=== PATIENT | female | born 2000 | race Caucasian/White ===

== ENCOUNTER 2018-11-11 20:13 | Observation (INO) | payer OTHER ==
--- NOTE | 2018-11-11 21:07 | ED ---
Abdominal Pain HPI - General Chief Complaint: Abdominal Pain Stated Complaint: Transfer from [facility] Time Seen by Provider: 11/11/18 20:53 Source: patient Mode of arrival: ambulatory Limitations: no limitations - History of Present Illness Initial Comments: This patient is 18-year-old woman who states she has previous history of kidney stones, who presents with concern that she may have an infected stone. Patient reports she had been seen at [facility] this morning, told she had a stone with associated urinary tract infection, and was told that she should be transferred to another facility with urology coverage. The patient states that she had signed out AGAINST MEDICAL ADVICE to take care of some details and then come to the hospital on her own. The patient describes right flank pain that is been going on for approximately 24 hours. She also has more frequent urination. The patient has some associated nausea. She is describing the pain as sharp, colicky, [id number]. She has not found worsening or relieving factors. The patient has not had fever or chills, palpitations, lightheadedness or syn cope, chest pain or dyspnea. MD Complaint: flank pain Onset/Timin -: hour(s) Location: R flank Radiation: none Migration to: no migration Severity: severe Quality: sharp Consistency: constant Improves With: nothing Worsens With: nothing Associated Symptoms: nausea - Related Data Home Medications Medication Instructions Recorded Confirmed No Known Home Medications 11/11/18 11/11/18 Allergies Allergy/AdvReac Type Severity Reaction Status Date / Time No Known Allergies Allergy Verified 11/11/18 21:14 Review of Systems ROS Statement: Those systems with pertinent positive or pertinent negative responses have been documented in the HPI. ROS Other: All systems not noted in ROS Statement are negative. Constitutional: Denies: fever, chills, weakness Respiratory: Denies: cough, dyspnea Cardiovascular: Denies: chest pain, palpitations, edema Gastrointestinal: Reports: as per HPI, abdominal pain, nausea. Denies: vomiting, diarrhea, constipation, melena, hematochezia Genitourinary: Reports: frequency. Denies: dysuria Musculoskeletal: Denies: back pain Skin: Denies: rash Neurological: Denies: headache, weakness, numbness Past Medical History Additional Past Medical History / Comment(s): kidney stones, ovarian cysts History of Any Multi-Drug Resistant Organisms: None Reported Past Surgical History: No Surgical Hx Reported Past Psychological History: No Psychological Hx Reported Smoking Status: Current every day smoker Past Alcohol Use History: Rare Past Drug Use History: Marijuana General Exam Limitations: no limitations General appearance: alert, in no apparent distress Head exam: Present: atraumatic, normocephalic Eye exam: Present: normal appearance. Absent: scleral icterus, conjunctival injection Respiratory exam: Present: normal lung sounds bilaterally. Absent: respiratory distress, wheezes, rales, rhonchi, stridor Cardiovascular Exam: Present: regular rate, normal rhythm, normal heart sounds. Absent: systolic murmur, diastolic murmur, rubs, gallop GI/Abdominal exam: Present: soft. Absent: distended, tenderness, guarding, rebound, rigid, mass, pulsatile mass, hernia Extremities exam: Present: normal inspection, normal capillary refill. Absent: pedal edema, calf tenderness Back exam: Present: normal inspection, CVA tenderness (R). Absent: CVA tenderness (L), vertebral tenderness Neurological exam: Present: alert, normal gait Skin exam: Present: warm, dry, intact, normal color. Absent: rash Course Vital Signs 11/11/18 11/11/18 20:45 22:10 Temperature 98.5 F Pulse Rate 55 L 69 Respiratory 20 16 Rate Blood Pressure 117/63 103/60 O2 Sat by Pulse 100 98 Oximetry Medical Decision Making - Medical Decision Making Review of the patient's transfer paperwork reveals no fever, tachcardia, or hypotension. The patient's urine showed red cells too numerous to count, white cells 5-10. Leukocytosis at 13.2K. patient's CT showed proximal stone, 6 mm, with hydronephrosis. - Lab Data Result diagrams: 11/11/18 21:35 11/11/18 21:35 Lab Results 11/11/18 11/11/18 11/11/18 Range/Units 21:35 21:35 21:35 WBC 11.0 (4.0-11.0) k/uL RBC 4.33 (3.80-5.40) m/uL Hgb 12.9 (11.4-16.0) gm/dL Hct 38.6 (34.0-46.0) % MCV 89.3 (80.0-100.0) fL MCH 29.8 (25.0-35.0) pg MCHC 33.4 (31.0-37.0) g/dL RDW 13.6 (11.5-15.5) % Plt Count 316 (150-450) k/uL Neutrophils % 50 % Lymphocytes % 42 % Monocytes % 4 % Eosinophils % 2 % Basophils % 1 % Neutrophils # 5.4 (1.3-7.7) k/uL Lymphocytes # 4.6 (1.0-4.8) k/uL Monocytes # 0.5 (0-1.0) k/uL Eosinophils # 0.2 (0-0.7) k/uL Basophils # 0.1 (0-0.2) k/uL Sodium 139 (137-145) mmol/L Potassium 3.5 (3.5-5.1) mmol/L Chloride 105 (98-107) mmol/L Carbon Dioxide 26 (22-30) mmol/L Anion Gap 8 mmol/L BUN 14 (7-17) mg/dL Creatinine 0.69 (0.52-1.04) mg/dL Est GFR (CKD-EPI)AfAm >90 (>60 ml/min/1.73 sqM) Est GFR (CKD-EPI)NonAf >90 (>60 ml/min/1.73 sqM) Glucose 78 (74-99) mg/dL Plasma Lactic Acid Alonso (0.7-2.0) mmol/L Calcium 9.4 (8.4-10.2) mg/dL Total Bilirubin 0.4 (0.2-1.3) mg/dL AST 32 (14-36) U/L ALT 26 (9-52) U/L Alkaline Phosphatase 78 (38-126) U/L Total Protein 6.9 (6.3-8.2) g/dL Albumin 4.3 (3.5-5.0) g/dL Amylase 76 (30-110) U/L Lipase 150 (23-300) U/L Urine Color Yellow Urine Appearance Clear (Clear) Urine pH 6.0 (5.0-8.0) Ur Specific [place] 1.021 (1.001-1.035) Urine Protein Negative (Negative) Urine Glucose (UA) Negative (Negative) Urine Ketones Negative (Negative) Urine Blood Small H (Negative) Urine Nitrite Negative (Negative) Urine Bilirubin Negative (Negative) Urine Urobilinogen <2.0 (<2.0) mg/dL Ur Leukocyte Esterase Small H (Negative) Urine RBC 25 H (0-5) /hpf Urine WBC 38 H (0-5) /hpf Urine WBC Clumps Rare H (None) /hpf Ur Squamous Epith Cells 2 (0-4) /hpf Urine Bacteria Rare H (None) /hpf Urine Mucus Rare H (None) /hpf 11/11/18 Range/Units 21:35 WBC (4.0-11.0) k/uL RBC (3.80-5.40) m/uL Hgb (11.4-16.0) gm/dL Hct (34.0-46.0) % MCV (80.0-100.0) fL MCH (25.0-35.0) pg MCHC (31.0-37.0) g/dL RDW (11.5-15.5) % Plt Count (150-450) k/uL Neutrophils % % Lymphocytes % % Monocytes % % Eosinophils % % Basophils % % Neutrophils # (1.3-7.7) k/uL Lymphocytes # (1.0-4.8) k/uL Monocytes # (0-1.0) k/uL Eosinophils # (0-0.7) k/uL Basophils # (0-0.2) k/uL Sodium (137-145) mmol/L Potassium (3.5-5.1) mmol/L Chloride (98-107) mmol/L Carbon Dioxide (22-30) mmol/L Anion Gap mmol/L BUN (7-17) mg/dL Creatinine (0.52-1.04) mg/dL Est GFR (CKD-EPI)AfAm (>60 ml/min/1.73 sqM) Est GFR (CKD-EPI)NonAf (>60 ml/min/1.73 sqM) Glucose (74-99) mg/dL Plasma Lactic Acid Alonso 0.8 (0.7-2.0) mmol/L Calcium (8.4-10.2) mg/dL Total Bilirubin (0.2-1.3) mg/dL AST (14-36) U/L ALT (9-52) U/L Alkaline Phosphatase (38-126) U/L Total Protein (6.3-8.2) g/dL Albumin (3.5-5.0) g/dL Amylase (30-110) U/L Lipase (23-300) U/L Urine Color Urine Appearance (Clear) Urine pH (5.0-8.0) Ur Specific [place] (1.001-1.035) Urine Protein (Negative) Urine Glucose (UA) (Negative) Urine Ketones (Negative) Urine Blood (Negative) Urine Nitrite (Negative) Urine Bilirubin (Negative) Urine Urobilinogen (<2.0) mg/dL Ur Leukocyte Esterase (Negative) Urine RBC (0-5) /hpf Urine WBC (0-5) /hpf Urine WBC Clumps (None) /hpf Ur Squamous Epith Cells (0-4) /hpf Urine Bacteria (None) /hpf Urine Mucus (None) /hpf Disposition Clinical Impression: Kidney stone, Urinary tract infection Disposition: ADMITTED IP TO THIS [facility] Condition: Good Is patient prescribed a controlled substance at d/c from ED?: No Referrals: None,Stated [Primary Care Provider] - 1-2 days
--- NOTE | 2018-11-11 21:27 | XR ---
EXAMINATION TYPE: XR KUB 2 views DATE OF EXAM: 11/11/2018 COMPARISON: None HISTORY: Abdominal pain on the right, hematuria TECHNIQUE: 2 upright views FINDINGS: Visualized lung bases and pleural spaces are negative. No pneumoperitoneum or pneumatosis; the bowel gas pattern is unremarkable. No acute skeletal or soft tissue findings. There is a calcification superimposed over the L4 right transverse process, which appears to be super imposed over the expected position of the right UPJ. IMPRESSION: 1. No acute radiographic process. 2. 6 x 3 mm calcification superimposed over the expected position of the right UPJ.
[2018-11-11 22:13] LABS: Appearance,Urine Clear (Clear); Bacteria,Urine Rare /hpf; Bilirubin,Urine Negative (Negative); Blood,Urine Small (Negative); Color,Urine Yellow; Glucose,Urine (UA) Negative (Negative); Ketones,Urine Negative (Negative); Leukocyte Esterase,Urine Small (Negative); Mucus,Urine Rare /hpf; Nitrite,Urine Negative (Negative); Protein,Urine Negative (Negative); RBC,Urine 25 /hpf (0-5); Specific Gravity,Urine 1.021 (1.001-1.035); Squamous Epithelial Cell,Urine 2 /hpf (0-4); Urobilinogen,Urine <2.0 mg/dL (<2.0); WBC,Urine 38 /hpf (0-5)
[2018-11-11] MEDS ORDERED: KETOROLAC 30 MG/ML 1 ML VIAL IVP STA (22:14)
[2018-11-11 22:19] LABS: ALT 26 U/L (9-52); AST 32 U/L (14-36); Albumin 4.3 g/dL (3.5-5.0); Alkaline Phosphatase 78 U/L (38-126); Amylase 76 U/L (30-110); Anion Gap 8 mmol/L; Basophils # (A) 0.1 k/uL (0-0.2); Basophils % (A) 1 %; Blood Urea Nitrogen 14 mg/dL (7-17); Calcium 9.4 mg/dL (8.4-10.2); Carbon Dioxide 26 mmol/L (22-30); Chloride 105 mmol/L (98-107); Eosinophils # (A) 0.2 k/uL (0-0.7); Eosinophils % (A) 2 %; Glucose 78 mg/dL (74-99); HCT 38.6 % (34.0-46.0); HGB 12.9 gm/dL (11.4-16.0); Lipase 150 U/L (23-300); Lymphocytes # (A) 4.6 k/uL (1.0-4.8); Lymphocytes % (A) 42 %; MCH 29.8 pg (25.0-35.0); MCHC 33.4 g/dL (31.0-37.0); MCV 89.3 fL (80.0-100.0); Mean Platelet Volume 7.1; Monocytes # (A) 0.5 k/uL (0-1.0); Monocytes % (A) 4 %; Neutrophils # (A) 5.4 k/uL (1.3-7.7); Neutrophils % (A) 50 %; Platelet Count 316 k/uL (150-450); Potassium 3.5 mmol/L (3.5-5.1); RBC 4.33 m/uL (3.80-5.40); RDW 13.6 % (11.5-15.5); Sodium 139 mmol/L (137-145); Total Bilirubin 0.4 mg/dL (0.2-1.3); Total Protein 6.9 g/dL (6.3-8.2)
[2018-11-11] MEDS ORDERED: LEVOFLOXACIN 750MG-D5W PMX 750 MG in DEXTROSE/WATER 1 150ML.BAG IVPB STA (22:30)
[2018-11-11] MEDS ORDERED: ACETAMINOPHEN TAB 325 MG TAB PO PRN (22:35)
[2018-11-11] MEDS ORDERED: MORPHINE SULFATE 4 MG/ML SYRINGE IV PRN (22:35)
[2018-11-11] MEDS ORDERED: NALOXONE 0.4 MG/ML 1 ML VIAL IV PRN (22:35)
[2018-11-11 23:39] VITALS: RESP 18
[2018-11-11 23:50] VITALS: BMI 20.9
[2018-11-12] MEDS: SODIUM CHLORIDE 0.9% 1,000 ML IV SCH ×2 (00:41→09:08)
[2018-11-12 07:35] LABS: Anion Gap 4 mmol/L; Blood Urea Nitrogen 12 mg/dL (7-17); Calcium 8.5 mg/dL (8.4-10.2); Carbon Dioxide 24 mmol/L (22-30); Chloride 110 mmol/L (98-107); Glucose 83 mg/dL (74-99); Potassium 3.8 mmol/L (3.5-5.1); Sodium 138 mmol/L (137-145)
[2018-11-12] MEDS ORDERED: HYDROcodone/APAP 5-325MG 1 EACH TAB PO PRN (08:30)
--- NOTE | 2018-11-12 08:30 | P.GSHP ---
History of Present Illness H&P Date: 11/12/18 The patient is a 18-year-old female from [place] she was transferred down yesterday night to our emergency room because of flank pain due to a 6 mm ureteral stone on the right as well as possible urinary infection. The patient for the last several days as had the for right flank pain and right upper quadrant pain with nausea. Yesterday and [facility] she had a computed tomography scan identifying a 6 mm proximal ureteral stone with possible urinary infection. Her white count was mildly elevated she had no fever. The patient may have had a stone a few years ago. She has had intermittent right upper quadrant pain over the last couple years. It is only been severe just the last couple days. Her mother has had stones up. She has not had a lot of infection. She has had no fever and chills. She is feeling much better this morning. - Constitutional Constitutional: Denies chills, Denies fever - EENT Eyes: denies blurred vision, denies pain Ears, nose, mouth and throat: Denies headache, Denies sore throat - Cardiovascular Cardiovascular: Denies chest pain, Denies shortness of breath - Respiratory Respiratory: Denies cough, Denies 7 - Gastrointestinal Gastrointestinal: Denies abdominal pain, Denies diarrhea, Denies nausea, Denies vomiting - Genitourinary (Female) Genitourinary: Denies dysuria, Denies hematuria - Genitourinary (Male) Genitourinary: Denies dysuria, Denies hematuria - Musculoskeletal Musculoskeletal: Denies myalgias - Integumentary Integumentary: Denies pruritus, Denies rash - Neurological Neurological: Denies numbness, Denies weakness - Psychiatric Psychiatric: Denies anxiety, Denies depression - Endocrine Endocrine: Denies fatigue, Denies weight change Past Medical History Additional Past Medical History / Comment(s): Kidney stones, ovarian cysts History of Any Multi-Drug Resistant Organisms: None Reported Past Surgical History: No Surgical Hx Reported Past Anesthesia/Blood Transfusion Reactions: No Reported Reaction Past Psychological History: Depression Smoking Status: Current every day smoker Past Alcohol Use History: Rare Additional Past Alcohol Use History / Comment(s): A quarter of a pack of cigarettes daily. Rare alcohol use. Rare marijuana use. States she lives with no one but feels safe. Past Drug Use History: Marijuana - Past Family History Mother Family Medical History: Cancer Additional Family Medical History / Comment(s): Aunts/uncles/grandmothers/grandfathers. Brain ca, thyroid ca. Medications and Allergies Home Medications Medication Instructions Recorded Confirmed Type No Known Home Medications 11/11/18 11/11/18 History Allergies Allergy/AdvReac Type Severity Reaction Status Date / Time No Known Allergies Allergy Verified 11/11/18 21:14 Surgical - Exam Vital Signs Temp Pulse Resp BP Pulse Ox 98.5 F 55 L 20 117/63 100 11/11/18 20:45 11/11/18 20:45 11/11/18 20:45 11/11/18 20:45 11/11/18 20:45 - General well developed, well nourished, no distress - Eyes PERRL - ENT no hearing loss - Neck no masses - Respiratory normal expansion, normal respiratory effort - Cardiovascular Rhythm: regular - Abdomen Abdomen: soft, non tender - Neurologic normal coordination, normal sensation - Musculoskeletal normal posture - Psychiatric oriented to time, oriented to person, speech is normal, memory intact Results - Labs 11/11/18 21:35 11/12/18 06:31 Abnormal Lab Results - Last 24 Hours (Table) 11/11/18 11/12/18 Range/Units 21:35 06:31 Chloride 110 H (98-107) mmol/L Urine Blood Small H (Negative) Ur Leukocyte Esterase Small H (Negative) Urine RBC 25 H (0-5) /hpf Urine WBC 38 H (0-5) /hpf Urine WBC Clumps Rare H (None) /hpf Urine Bacteria Rare H (None) /hpf Urine Mucus Rare H (None) /hpf Microbiology - Last 24 Hours (Table) 11/11/18 21:35 Urine Culture - Preliminary Urine,Clean Catch Diabetes panel 11/11/18 11/12/18 Range/Units 21:35 06:31 Sodium 139 138 (137-145) mmol/L Potassium 3.5 3.8 (3.5-5.1) mmol/L Chloride 105 110 H (98-107) mmol/L Carbon Dioxide 26 24 (22-30) mmol/L BUN 14 12 (7-17) mg/dL Creatinine 0.69 0.62 (0.52-1.04) mg/dL Glucose 78 83 (74-99) mg/dL Calcium 9.4 8.5 (8.4-10.2) mg/dL AST 32 (14-36) U/L ALT 26 (9-52) U/L Alkaline Phosphatase 78 (38-126) U/L Total Protein 6.9 (6.3-8.2) g/dL Albumin 4.3 (3.5-5.0) g/dL Calcium panel 11/11/18 11/12/18 Range/Units 21:35 06:31 Calcium 9.4 8.5 (8.4-10.2) mg/dL Albumin 4.3 (3.5-5.0) g/dL Pituitary panel 11/11/18 11/12/18 Range/Units 21:35 06:31 Sodium 139 138 (137-145) mmol/L Potassium 3.5 3.8 (3.5-5.1) mmol/L Chloride 105 110 H (98-107) mmol/L Carbon Dioxide 26 24 (22-30) mmol/L BUN 14 12 (7-17) mg/dL Creatinine 0.69 0.62 (0.52-1.04) mg/dL Glucose 78 83 (74-99) mg/dL Calcium 9.4 8.5 (8.4-10.2) mg/dL Adrenal panel 11/11/18 11/12/18 Range/Units 21:35 06:31 Sodium 139 138 (137-145) mmol/L Potassium 3.5 3.8 (3.5-5.1) mmol/L Chloride 105 110 H (98-107) mmol/L Carbon Dioxide 26 24 (22-30) mmol/L BUN 14 12 (7-17) mg/dL Creatinine 0.69 0.62 (0.52-1.04) mg/dL Glucose 78 83 (74-99) mg/dL Calcium 9.4 8.5 (8.4-10.2) mg/dL Total Bilirubin 0.4 (0.2-1.3) mg/dL AST 32 (14-36) U/L ALT 26 (9-52) U/L Alkaline Phosphatase 78 (38-126) U/L Total Protein 6.9 (6.3-8.2) g/dL Albumin 4.3 (3.5-5.0) g/dL - Imaging CT scan - abdomen: report reviewed CT scan - pelvis: report reviewed Assessment and Plan Assessment: Impression: Right ureteral stone with colic. Possible urine infection most likely just urinary inflammation. Recommendations: I the lengthy discussion about the diagnosis of ureteral calculus as well as the multiple treatment options available. Since she is feeling relatively well I would encourage spontaneous passage of possible with the thought that if she doesn't pass in the next 10 days or so she could undergo shockwave lithotripsy on the right side. We'll see how she does over the next several hours. If she agrees with comfortable she can be discharged home and follow-up in the office next week. I would consider shockwave lithotripsy in 10 days if she does not pass a stone or has intermittent discomfort in the meanwhile. If her pain persists while she is here at the hospital she may need a ureteroscopic manipulation.
[2018-11-12 08:45] LABS: Basophils # (A) 0.1 k/uL (0-0.2); Basophils % (A) 1 %; Eosinophils # (A) 0.3 k/uL (0-0.7); Eosinophils % (A) 4 %; HCT 35.5 % (34.0-46.0); HGB 12.3 gm/dL (11.4-16.0); Lymphocytes # (A) 4.5 k/uL (1.0-4.8); Lymphocytes % (A) 60 %; MCHC 34.6 g/dL (31.0-37.0); MCV 89.5 fL (80.0-100.0); Mean Platelet Volume 7.6; Monocytes # (A) 0.4 k/uL (0-1.0); Monocytes % (A) 5 %; Neutrophils # (A) 2.2 k/uL (1.3-7.7); Neutrophils % (A) 29 %; Platelet Count 279 k/uL (150-450); RBC 3.97 m/uL (3.80-5.40); RDW 13.7 % (11.5-15.5); WBC 7.5 k/uL (4.0-11.0)
[2018-11-12] MEDS ORDERED: FAMOTIDINE 20 MG TAB PO SCH (09:00)
[2018-11-12 12:09] VITALS: BP 101/63; PULSE 52; TEMP 97.7
== END 2018-11-12 13:29 | disposition home or self-care (01) ==
LOC: EC 20:13 → 3NMEDONC 22:38
PROVIDERS: ADMIT Urology; ATTEND Urology
DX: N13.2 Hydronephrosis with renal and ureteral calculous obstruction (principal); F32.9 Major depressive disorder, single episode, unspecified; F17.210 Nicotine dependence, cigarettes, uncomplicated; D72.829 Elevated white blood cell count, unspecified; Z87.442 Personal history of urinary calculi; Z87.42 Personal history of other diseases of the female genital tract; Z80.8 Family history of malignant neoplasm of other organs or systems; Z84.1 Family history of disorders of kidney and ureter
CPT/HCPCS: 96361; 96375 ×2; 96365; 99285; 36415; 80053; 80048; 82150; 83605; 83690; 85025 ×2; 81001; 87040; 87086; 74018; G0378 ×2; J2270; J1885; J1956

== ENCOUNTER 2019-10-02 14:56 | Inpatient (IN) | payer OTHER ==
--- NOTE | 2019-10-02 15:24 | ED ---
Abdominal Pain HPI - General Chief Complaint: Abdominal Pain Stated Complaint: sent [facility]/kidney stone Time Seen by Provider: 10/02/19 15:03 Source: patient Mode of arrival: ambulatory Limitations: no limitations - History of Present Illness Initial Comments: 19-year-old female presenting for infected urolithiasis, obstructing x 20 hours. Patient states she has had right flank pain 20 hours. Patient states that she is history of kidney stone. Patient states the pain is very severe sharp causing nausea. Patient states she presented at 9 AM to have repeat hospital. She states they are she was told that she had an 8 mm stone. She states her pain was uncontrolled with morphine hourly and she was sent to [facility] higher level of care given no urology for consultation at the hospital. Patient decided she would like to be transported via personal vehicle and arrived to the emergency department here [facility] around 3 PM. Patient brought her laboratory studies which did reveal a white count of 28, positive nitrate urine and an CT with contrast revealing a 8 mm proximal ureter stone with moderate to severe hydronephrosis right sided as well as significant urinary nephrotic edema concerning for caliceal rupture. Patient upon arrival is complaing of left flank pain, HR elevated, she is not hypotensive but BP lower aspect of normal, afebrile. Does not appear in distress. Has seen Dr. Corral in the past. - Related Data Previous Rx's Medication Instructions Recorded Ciprofloxacin HCl [Cipro] 500 mg PO Q12H 3 Days #10 tab 11/12/18 HYDROcodone/APAP 5-325MG [[place] 1 tab PO Q4HR PRN #10 tab 11/12/18 5-325] Allergies Allergy/AdvReac Type Severity Reaction Status Date / Time No Known Allergies Allergy Verified 10/02/19 15:02 Review of Systems ROS Statement: Those systems with pertinent positive or pertinent negative responses have been documented in the HPI. ROS Other: All systems not noted in ROS Statement are negative. Past Medical History Additional Past Medical History / Comment(s): Kidney stones, ovarian cysts History of Any Multi-Drug Resistant Organisms: None Reported Past Surgical History: No Surgical Hx Reported Past Anesthesia/Blood Transfusion Reactions: No Reported Reaction Past Psychological History: Depression Smoking Status: Current every day smoker Past Alcohol Use History: Rare Past Drug Use History: Marijuana - Past Family History Mother Family Medical History: Cancer Additional Family Medical History / Comment(s): Aunts/uncles /grandmothers/grandfathers. Brain ca, thyroid ca. General Exam - General Exam Comments Initial Comments: General: The patient is awake and alert, in no distress Eye: +3 mm pupils are equal, round and reactive to light, extra-ocular movements are intact. No nystagmus. There is normal conjunctiva bilaterally. No signs of icterus. Ears, nose, mouth and throat: There are moist mucous membranes and no oral lesions. Neck: The neck is supple, there is no tenderness or JVD. Cardiovascular: There is a regular rate and rhythm. No murmur, rub or gallop is appreciated. Respiratory: Lungs are clear to auscultation, respirations are non-labored, breath sounds are equal. No wheezes, stridor, rales, or rhonchi. Gastrointestinal: Soft, non-distended, non-tender abdomen without masses or organomegaly noted. There is no rebound or guarding present. Musculoskeletal: Normal ROM, no tenderness. Strength 5/5. Sensation intact. Radial pulses equal bilaterally 2+. Neurological: A&O x 3. CN II-XII intact grossly, There are no obvious motor or sensory deficits. Coordination appears grossly intact. Speech is normal. Skin: Skin is warm and dry and no rashes or lesions are noted. Psychiatric: Cooperative, appropriate mood & affect, normal judgment. Limitations: no limitations Course Vital Signs 10/02/19 10/02/19 14:59 16:56 Temperature 99.3 F 99 F Pulse Rate 117 H 101 H Respiratory 20 18 Rate Blood Pressure 101/59 100/69 O2 Sat by Pulse 98 98 Oximetry Medical Decision Making - Medical Decision Making 19-year-old female presenting for right flank pain x 20 hours. Found to have a septic obstructing right-sided ureteral stone psych facility transfer to our facility for urology consultation. Found to have leukocytosis, urine consistent with the diagnosis made at [facility]. Dr. Faulkner accepted admission he states he will take the patient to the operating room at 6:30PM. Patient is agreeable to surgery. In addition to the original 1gm given earlier today patient was given 1gm rocephin for a total of 2g today. Patient transferred to pediatric floor until surgeon takes patient to the OR. Dr. Valdez spoke with specialist as well as I. Dr. Valdez is agreeable to this care plan. - Lab Data Result diagrams: 10/02/19 15:13 10/02/19 15:13 Lab Results 10/02/19 10/02/19 10/02/19 Range/Units 15:13 15:13 15:13 WBC 25.7 H (3.8-10.6) k/uL RBC 4.48 (3.80-5.40) m/uL Hgb 13.3 (11.4-16.0) gm/dL Hct 39.6 (34.0-46.0) % MCV 88.5 (80.0-100.0) fL MCH 29.7 (25.0-35.0) pg MCHC 33.6 (31.0-37.0) g/dL RDW 12.9 (11.5-15.5) % Plt Count 295 (150-450) k/uL Neutrophils % 95 % Lymphocytes % 3 % Monocytes % 2 % Eosinophils % 0 % Basophils % 0 % Neutrophils # 24.4 H (1.3-7.7) k/uL Lymphocytes # 0.6 L (1.0-4.8) k/uL Monocytes # 0.6 (0-1.0) k/uL Eosinophils # 0.1 (0-0.7) k/uL Basophils # 0.0 (0-0.2) k/uL Sodium 131 L (137-145) mmol/L Potassium 4.1 (3.5-5.1) mmol/L Chloride 101 (98-107) mmol/L Carbon Dioxide 20 L (22-30) mmol/L Anion Gap 10 mmol/L BUN 17 (7-17) mg/dL Creatinine 1.17 H (0.52-1.04) mg/dL Est GFR (CKD-EPI)AfAm 77 (>60 ml/min/1.73 sqM) Est GFR (CKD-EPI)NonAf 67 (>60 ml/min/1.73 sqM) Glucose 93 (74-99) mg/dL Plasma Lactic Acid Alonso 1.3 (0.7-2.0) mmol/L Calcium 8.5 (8.4-10.2) mg/dL Total Bilirubin 0.9 (0.2-1.3) mg/dL AST 33 (14-36) U/L ALT 14 (4-34) U/L Alkaline Phosphatase 91 (38-126) U/L Total Protein 6.7 (6.3-8.2) g/dL Albumin 3.8 (3.5-5.0) g/dL Urine Color Urine Appearance (Clear) Urine pH (5.0-8.0) Ur Specific [place] (1.001-1.035) Urine Protein (Negative) Urine Glucose (UA) (Negative) Urine Ketones (Negative) Urine Blood (Negative) Urine Nitrite (Negative) Urine Bilirubin (Negative) Urine Urobilinogen (<2.0) mg/dL Ur Leukocyte Esterase (Negative) Urine RBC (0-5) /hpf Urine WBC (0-5) /hpf Ur Squamous Epith Cells (0-4) /hpf Urine Bacteria (None) /hpf Urine Mucus (None) /hpf Urine HCG, Qual (Not Detectd) 10/02/19 10/02/19 Range/Units 15:30 15:30 WBC (3.8-10.6) k/uL RBC (3.80-5.40) m/uL Hgb (11.4-16.0) gm/dL Hct (34.0-46.0) % MCV (80.0-100.0) fL MCH (25.0-35.0) pg MCHC (31.0-37.0) g/dL RDW (11.5-15.5) % Plt Count (150-450) k/uL Neutrophils % % Lymphocytes % % Monocytes % % Eosinophils % % Basophils % % Neutrophils # (1.3-7.7) k/uL Lymphocytes # (1.0-4.8) k/uL Monocytes # (0-1.0) k/uL Eosinophils # (0-0.7) k/uL Basophils # (0-0.2) k/uL Sodium (137-145) mmol/L Potassium (3.5-5.1) mmol/L Chloride (98-107) mmol/L Carbon Dioxide (22-30) mmol/L Anion Gap mmol/L BUN (7-17) mg/dL Creatinine (0.52-1.04) mg/dL Est GFR (CKD-EPI)AfAm (>60 ml/min/1.73 sqM) Est GFR (CKD-EPI)NonAf (>60 ml/min/1.73 sqM) Glucose (74-99) mg/dL Plasma Lactic Acid Alonso (0.7-2.0) mmol/L Calcium (8.4-10.2) mg/dL Total Bilirubin (0.2-1.3) mg/dL AST (14-36) U/L ALT (4-34) U/L Alkaline Phosphatase (38-126) U/L Total Protein (6.3-8.2) g/dL Albumin (3.5-5.0) g/dL Urine Color Yellow Urine Appearance Cloudy H (Clear) Urine pH 6.0 (5.0-8.0) Ur Specific [place] >1.050 H (1.001-1.035) Urine Protein Trace H (Negative) Urine Glucose (UA) Negative (Negative) Urine Ketones Trace H (Negative) Urine Blood Moderate H (Negative) Urine Nitrite Negative (Negative) Urine Bilirubin Negative (Negative) Urine Urobilinogen <2.0 (<2.0) mg/dL Ur Leukocyte Esterase Large H (Negative) Urine RBC 42 H (0-5) /hpf Urine WBC 153 H (0-5) /hpf Ur Squamous Epith Cells 13 H (0-4) /hpf Urine Bacteria Few H (None) /hpf Urine Mucus Rare H (None) /hpf Urine HCG, Qual Not Detected (Not Detectd) Disposition Clinical Impression: Hydronephrosis with urinary obstruction due to ureteral calculus, Urolithiasis, UTI (urinary tract infection) Narrative: Infected urolithiasis-right sided Disposition: ADMITTED IP TO THIS [facility] Condition: Serious Is patient prescribed a controlled substance at d/c from ED?: No Time of Disposition: 15:58 Decision to Admit Reason: Admit from EC Decision Date: 10/02/19 Decision Time: 15:58
[2019-10-02] MEDS ORDERED: MORPHINE SULFATE 4 MG/ML SYRINGE IVP STA (15:30)
[2019-10-02] MEDS ORDERED: ONDANSETRON 4 MG/2 ML VIAL IVP STA (15:30)
[2019-10-02] MEDS ORDERED: SODIUM CHLORIDE 0.9% 1,000 ML IV ONE (15:36)
[2019-10-02] MEDS: SODIUM CHLORIDE 0.9% 1,000 ML IV SCH ×2 (15:47→19:39)
[2019-10-02] MEDS ORDERED: ONDANSETRON 4 MG/2 ML VIAL IVP PRN (15:52)
[2019-10-02] MEDS ORDERED: NALOXONE 0.4 MG/ML 1 ML VIAL IV PRN (15:52)
[2019-10-02] MEDS ORDERED: HYDROmorphone 0.5 MG/0.5 ML SYRINGE IVP PRN (15:52)
[2019-10-02 16:14] LABS: Albumin 3.8 g/dL (3.5-5.0); Basophils % (A) 0 %; Calcium 8.5 mg/dL (8.4-10.2); Eosinophils # (A) 0.1 k/uL (0-0.7); Eosinophils % (A) 0 %; HCT 39.6 % (34.0-46.0); HGB 13.3 gm/dL (11.4-16.0); Lymphocytes # (A) 0.6 k/uL (1.0-4.8); Lymphocytes % (A) 3 %; MCH 29.7 pg (25.0-35.0); MCHC 33.6 g/dL (31.0-37.0); MCV 88.5 fL (80.0-100.0); Mean Platelet Volume 7.1; Monocytes # (A) 0.6 k/uL (0-1.0); Monocytes % (A) 2 %; Neutrophils # (A) 24.4 k/uL (1.3-7.7); Neutrophils % (A) 95 %; Platelet Count 295 k/uL (150-450); Potassium 4.1 mmol/L (3.5-5.1); RBC 4.48 m/uL (3.80-5.40); RDW 12.9 % (11.5-15.5); Total Bilirubin 0.9 mg/dL (0.2-1.3); Total Protein 6.7 g/dL (6.3-8.2); WBC 25.7 k/uL (3.8-10.6)
[2019-10-02 16:14] LABS: Appearance,Urine Cloudy (Clear); Bacteria,Urine Few /hpf; Bilirubin,Urine Negative (Negative); Blood,Urine Moderate (Negative); Color,Urine Yellow; Glucose,Urine (UA) Negative (Negative); Ketones,Urine Trace (Negative); Leukocyte Esterase,Urine Large (Negative); Mucus,Urine Rare /hpf; Nitrite,Urine Negative (Negative); Protein,Urine Trace (Negative); RBC,Urine 42 /hpf (0-5); Squamous Epithelial Cell,Urine 13 /hpf (0-4); Urobilinogen,Urine <2.0 mg/dL (<2.0); WBC,Urine 153 /hpf (0-5)
[2019-10-02 16:15] LABS: Specific Gravity,Urine >1.050 (1.001-1.035)
--- NOTE | 2019-10-02 16:36 | XR ---
EXAMINATION TYPE: XR KUB DATE OF EXAM: 10/02/2019 COMPARISON: 11/11/2018 HISTORY: Right-sided pain TECHNIQUE: 2 views upright FINDINGS: There is no sign of intestinal obstruction or pneumoperitoneum. Fecal pattern is normal. Th ere is contrast in the right kidney with hydronephrosis. Lung bases are clear. There are no pathologi c calcifications. There is contrast in the urinary bladder. IMPRESSION: Right-sided hydronephrosis with persistent right nephrogram and pyelogram consistent with acute obstruction. Appearance is not changed compared to outside CT scan of today. No calculus ident ified.
--- NOTE | 2019-10-02 17:56 | P.GSHP ---
History of Present Illness H&P Date: 10/02/19 This is a 19-year-old female with a history of kidney stones who for the last day has had right-sided flank pain nausea vomiting and severe of right sided flank pain. She went to the [facility] emergency room and then was transferred to [facility] after was identified that she had an 8 mm proximal ureteral stone and elevated white count of 28,000 low-grade fever. I was asked to see the patient. The patient has been seen by me in the past. She has an 8 mm proximal ureteral stone with hydronephrosis. Because of elevated white count a low-grade fever, tachycardic she will undergo an emergent placement of double-J catheter to relieve the obstruction and aid in the treatme nt of the infected urine and sepsis. - Constitutional Constitutional: Denies chills, Denies fever - EENT Eyes: denies blurred vision, denies pain Ears, nose, mouth and throat: Denies headache, Denies sore throat - Cardiovascular Cardiovascular: Denies chest pain, Denies shortness of breath - Respiratory Respiratory: Denies cough, Denies 7 - Gastrointestinal Gastrointestinal: Denies abdominal pain, Denies diarrhea, Denies nausea, Denies vomiting - Genitourinary (Female) Genitourinary: Denies dysuria, Denies hematuria - Genitourinary (Male) Genitourinary: Denies dysuria, Denies hematuria - Musculoskeletal Musculoskeletal: Denies myalgias - Integumentary Integumentary: Denies pruritus, Denies rash - Neurological Neurological: Denies numbness, Denies weakness - Psychiatric Psychiatric: Denies anxiety, Denies depression - Endocrine Endocrine: Denies fatigue, Denies weight change Past Medical History Additional Past Medical History / Comment(s): Kidney stones, ovarian cysts History of Any Multi-Drug Resistant Organisms: None Reported Past Surgical History: No Surgical Hx Reported Past Anesthesia/Blood Transfusion Reactions: No Reported Reaction Past Psychological History: Depression Smoking Status: Current every day smoker Past Alcohol Use History: Rare Past Drug Use History: Marijuana - Past Family History Mother Family Medical History: Cancer Additional Family Medical History / Comment(s): Au nts/uncles/grandmothers/grandfathers. Brain ca, thyroid ca. Medications and Allergies Home Medications Medication Instructions Recorded Confirmed Type No Known Home Medications 10/02/19 10/02/19 History Allergies Allergy/AdvReac Type Severity Reaction Status Date / Time No Known Allergies Allergy Verified 10/02/19 17:21 Surgical - Exam Vital Signs Temp Pulse Resp BP Pulse Ox 99.3 F 117 H 20 101/59 98 10/02/19 14:59 10/02/19 14:59 10/02/19 14:59 10/02/19 14:59 10/02/19 14:59 - General well developed, moderate distress - Eyes PERRL - ENT no hearing loss - Neck no masses - Respiratory normal expansion, normal respiratory effort - Cardiovascular Tachycardic - Abdomen Abdomen: soft, tender - Integumentary no rash, no growths - Neurologic normal coordination, normal sensation - Musculoskeletal normal gait, normal posture - Psychiatric oriented to time, oriented to person, oriented to place, speech is normal, memory intact Results - Labs 10/02/19 15:13 10/02/19 15:13 Abnormal Lab Results - Last 24 Hours (Table) 10/02/19 10/02/19 10/02/19 Range/Units 15:13 15:13 15:30 WBC 25.7 H (3.8-10.6) k/uL Neutrophils # 24.4 H (1.3-7.7) k/uL Lymphocytes # 0.6 L (1.0-4.8) k/uL Sodium 131 L (137-145) mmol/L Carbon Dioxide 20 L (22-30) mmol/L Creatinine 1.17 H (0.52-1.04) mg/dL Urine Appearance Cloudy H (Clear) Ur Specific [place] >1.050 H (1.001-1.035) Urine Protein Trace H (Negative) Urine Ketones Trace H (Negative) Urine Blood Moderate H (Negative) Ur Leukocyte Esterase Large H (Negative) Urine RBC 42 H (0-5) /hpf Urine WBC 153 H (0-5) /hpf Ur Squamous Epith Cells 13 H (0-4) /hpf Urine Bacteria Few H (None) /hpf Urine Mucus Rare H (None) /hpf Diabetes panel 10/02/19 Range/Units 15:13 Sodium 131 L (137-145) mmol/L Potassium 4.1 (3.5-5.1) mmol/L Chloride 101 (98-107) mmol/L Carbon Dioxide 20 L (22-30) mmol/L BUN 17 (7-17) mg/dL Creatinine 1.17 H (0.52-1.04) mg/dL Glucose 93 (74-99) mg/dL Calcium 8.5 (8.4-10.2) mg/dL AST 33 (14-36) U/L ALT 14 (4-34) U/L Alkaline Phosphatase 91 (38-126) U/L Total Protein 6.7 (6.3-8.2) g/dL Albumin 3.8 (3.5-5.0) g/dL Calcium panel 10/02/19 Range/Units 15:13 Calcium 8.5 (8.4-10.2) mg/dL Albumin 3.8 (3.5-5.0) g/dL Pituitary panel 10/02/19 Range/Units 15:13 Sodium 131 L (137-145) mmol/L Potassium 4.1 (3.5-5.1) mmol/L Chloride 101 (98-107) mmol/L Carbon Dioxide 20 L (22-30) mmol/L BUN 17 (7-17) mg/dL Creatinine 1.17 H (0.52-1.04) mg/dL Glucose 93 (74-99) mg/dL Calcium 8.5 (8.4-10.2) mg/dL Adrenal panel 10/02/19 Range/Units 15:13 Sodium 131 L (137-145) mmol/L Potassium 4.1 (3.5-5.1) mmol/L Chloride 101 (98-107) mmol/L Carbon Dioxide 20 L (22-30) mmol/L BUN 17 (7-17) mg/dL Creatinine 1.17 H (0.52-1.04) mg/dL Glucose 93 (74-99) mg/dL Calcium 8.5 (8.4-10.2) mg/dL Total Bilirubin 0.9 (0.2-1.3) mg/dL AST 33 (14-36) U/L ALT 14 (4-34) U/L Alkaline Phosphatase 91 (38-126) U/L Total Protein 6.7 (6.3-8.2) g/dL Albumin 3.8 (3.5-5.0) g/dL - Imaging Abdominal x-ray: report reviewed, image reviewed CT scan - abdomen: report reviewed, image reviewed CT scan - pelvis: report reviewed, image reviewed Assessment and Plan Assessment: Impression: Right ureteral calculus, pyonephrosis, urinary tract infection with sepsis. Recommendations: Admission, IV hydration, IV antibiotics and emergent placement of double-J catheter right. Right Ureteroscopy and stone removal will be done at a later date.
[2019-10-02] MEDS ORDERED: fentaNYL (PF) 50 MCG/ML 2 ML AMP ONE (18:09)
[2019-10-02] MEDS ORDERED: SUCCINYLCHOLINE CHLORIDE 100 MG/5 ML SYR IV ONE (18:09)
[2019-10-02] MEDS ORDERED: LIDOCAINE 1% INJ 10MG/ML (20 ML MDV) ONE (18:09)
[2019-10-02] MEDS ORDERED: PROPOFOL 10 MG/ML 20 ML VIAL IV ONE (18:09)
[2019-10-02] MEDS ORDERED: MIDAZOLAM 2 MG/2 ML VIAL ONE (18:09)
[2019-10-02] MEDS ORDERED: KETOROLAC 30 MG/ML 1 ML VIAL ONE (18:09)
[2019-10-02] MEDS ORDERED: ONDANSETRON 4 MG/2 ML VIAL ONE (18:09)
[2019-10-02] MEDS ORDERED: DEXAMETHASONE SOD PHOS (MDV) 100 MG/10 ML VIAL ONE (18:09)
[2019-10-02] MEDS ORDERED: IV FLUID CONTINUATION 1,000 ML IV ONE ×2 (18:09)
--- NOTE | 2019-10-02 18:42 | P.OP ---
Date of Procedure: 10/02/19 Preoperative Diagnosis: Right ureteral calculus, right ureteral obstruction with pyelonephrosis, urinary tract infection with sepsis Postoperative Diagnosis: Same Procedure(s) Performed: Cystoscopy, placement of 6 x 24 double-J catheter right Anesthesia: CELESTINO Surgeon: Marv Corral Estimated Blood Loss (ml): 0 Pathology: none sent Condition: stable Disposition: PACU Indications for Procedure: The patient is 19. She has a history kidney stones. She has an 8 mm proximal ureteral stone that is obstructed the right ureter. The urine in the collecting system proximal to the stone is infected and backing up in the lymph and bloodstream a. She is septic with a urinary tract infection, pyonephrosis. She comes for cystoscopy with placement double-J catheter right. Description of Procedure: The patient is brought to the operating suite. She is given a general endotracheal anesthesia. She's placed lithotomy position with sterile prep and drape. Fluoroscopy identifies stone in the proximal ureter on the right. Cystoscopy Foroblique lens and 22-Amharic sheath identifies a normal urethra. There is cystitis on the floor the bladder. The rest the bladder is unremarkable. An 035 wires passed up the ureter. It meets obstruction of the stone was eventually manipulated by the stone. A parr of prior to nephrotic fluid drained out of the right ureter. Over the wires and passed a 6 x 24 double-J catheter that coils in the renal pelvis and the bladder. The urine coming out of the stent is purulent. The bladder strain the patient's awake and returned recovery room good condition Impression right ureteral obstruction with secondary pyelonephrosis, urinary tract infection with sepsis Recommendations patient will be observed in the hospital overnight. Cultures are pending. He'll be discharged home on oral antibiotics tomorrow and then pending the culture is whether this will need to be changed. We will approach the stone at a later date.
[2019-10-02] MEDS: HYDROcodone/APAP 5-325MG 1 EACH TAB PO PRN (20:54)
--- NOTE | 2019-10-02 23:22 | FL ---
EXAMINATION TYPE: FL guidance operating room DATE OF EXAM: 10/02/2019 CLINICAL HISTORY: Right ureter stone. TECHNIQUE: Fluoroscopy. COMPARISON: Outside CT earlier today. FINDINGS: Fluoroscopic guidance was provided during right ureter stent insertion procedure performed by Dr. Corral. A total of 39 seconds of fluoroscopic time was utilized during the procedure and 2 sp ot images are acquired. Images acquired show placement of guidewire and subsequent right ureter stent . IMPRESSION: As Above.
[2019-10-03] MEDS: HYDROcodone/APAP 5-325MG 1 EACH TAB PO PRN ×4 (00:13→11:45)
[2019-10-03 00:48] VITALS: RESP 16
[2019-10-03] MEDS: SODIUM CHLORIDE 0.9% 1,000 ML IV SCH (03:29)
[2019-10-03 08:28] VITALS: BP 98/50; PULSE 73; TEMP 98.6
--- NOTE | 2019-10-03 10:58 | P.DS ---
Providers Date of admission: 10/02/19 16:32 Attending physician: Marv Corral Primary care physician: Bertrand Eubanks Hospital Course: The patient came down via [place] because of an infected obstructed right ureteral calculus. She ended up requiring an emergent placement of stent last night because of the pyonephrosis. She is feeling better. She is afebrile. His are pending. Since she is able to ambulate and take by mouth fluids I will discharge her home on oral antibiotics pending the urine culture. I will contact her tomorrow Saturday with the final culture report to make sure she's been discharged on the right antibiotic. She'll be given a prescription for Toradol. She does have the double-J catheter on the right. I'll arrange for shockwave lithotripsy to be done a week from Saturday to rid her of the stone up. Postoperative instructions have been given. Her condition is good. She understands the instructions. Patient Condition at Discharge: Good Plan - Discharge Summary Discharge Rx Participant: No New Discharge Prescriptions: New Sulfamethox-Tmp 800-160Mg [Bactrim DS 800-160 mg] 1 tab PO Q12HR #30 tab Ketorolac [Toradol] 10 mg PO Q6HR PRN #20 tab PRN Reason: Pain Discharge Medication List Ketorolac [Toradol] 10 mg PO Q6HR PRN #20 tab 10/03/19 [Rx] Sulfamethox-Tmp 800-160Mg [Bactrim DS 800-160 mg] 1 tab PO Q12HR #30 tab 10/03/19 [Rx] Follow up Appointment(s)/Referral(s): Bertrand Eubanks MD [Primary Care Provider] - 1-2 days Marv Corral MD [STAFF PHYSICIAN] - 1 Week Discharge Disposition: HOME SELF-CARE
== END 2019-10-03 12:15 | disposition home or self-care (01) | DRG 854 ==
LOC: EC 14:56 → 6PED 16:32
PROVIDERS: ADMIT Urology; ATTEND Urology
PROC: 0T768DZ Dilation of Right Ureter with Intraluminal Device, Via Natural or Artificial Opening Endoscopic (ICD-10-PCS; principal; 2019-10-02 16:50)
DX: A41.9 Sepsis, unspecified organism (principal); N13.6 Pyonephrosis; F17.200 Nicotine dependence, unspecified, uncomplicated; F32.9 Major depressive disorder, single episode, unspecified; Z80.8 Family history of malignant neoplasm of other organs or systems; Z87.442 Personal history of urinary calculi
CPT/HCPCS: 36415; 74018; 80053; 81001; 81025; 83605; 85025; 87040; 87086

== ENCOUNTER 2019-10-12 07:05 | Day surgery (SDC) | payer SELFPAY ==
[2019-10-09 12:15] VITALS: BMI 24.2
--- NOTE | 2019-10-12 06:57 | P.GSHP ---
History of Present Illness H&P Date: 10/12/19 19 yo female who recently was at [facility] with an infected stone requiring antibiotics and a stent SHe has an 8 mm stone in the upj she comes for eswl this risks , complications and alternatives have been discussed She understands the importance of follow up and stent removal as she has missed pre vious appointments - Constitutional Constitutional: Denies chills, Denies fever - EENT Eyes: denies blurred vision, denies pain Ears, nose, mouth and throat: Denies headache, Denies sore throat - Cardiovascular Cardiovascular: Denies chest pain, Denies shortness of breath - Respiratory Respiratory: Denies cough, Denies 7 - Gastrointestinal Gastrointestinal: Denies abdominal pain, Denies diarrhea, Denies nausea, Denies vomiting - Genitourinary (Female) Genitourinary: Denies dysuria, Denies hematuria - Genitourinary (Male) Genitourinary: Denies dysuria, Denies hematuria - Musculoskeletal Musculoskeletal: Denies myalgias - Integumentary Integumentary: Denies pruritus, Denies rash - Neurological Neurological: Denies numbness, Denies weakness - Psychiatric Psychiatric: Denies anxiety, Denies depression - Endocrine Endocrine: Denies fatigue, Denies weight change Past Medical History Additional Past Medical History / Comment(s): Kidney stones, ovarian cysts , ureteral stent (10/02/19) History of Any Multi-Drug Resistant Organisms: None Reported Past Surgical History: No Surgical Hx Reported Additional Past Surgical History / Comment(s): cystoscopy with ureteral stent (10/02/19) Past Anesthesia/Blood Transfusion Reactions: No Reported Reaction Past Psychological History: Depression Smoking Status: Current every day smoker Past Alcohol Use History: None Reported Additional Past Alcohol Use History / Comment(s): A quarter of a pack of cigarettes daily. started smoking age 15. Past Drug Use History: Marijuana Additional Drug Use History / Comment(s): denies current marijuana use - Past Family History Mother Family Medical History: Cancer Additional Family Medical History / Comment(s): Aunts/uncles/grandmothers/grandfathers. Brain ca, thyroid ca. Medications and Allergies Home Medications Medication Instructions Recorded Confirmed Type Sulfamethox-Tmp 800-160Mg [Bactrim 1 tab PO Q12HR #30 tab 10/03/19 10/09/19 Rx DS 800-160 mg] Ibuprofen 400 mg PO DIRECTED PRN 10/09/19 10/09/19 History Allergies Allergy/AdvReac Type Severity Reaction Status Date / Time No Known Allergies Allergy Verified 10/09/19 11:40 Surgical - Exam - General well developed, well nourished - Eyes PERRL - Neck no masses - Respiratory normal expansion, normal respiratory effort - Cardiovascular Rhythm: regular - Abdomen Abdomen: soft, non tender - Integumentary no growths - Neurologic normal coordination, normal sensation - Musculoskeletal normal gait - Psychiatric oriented to time, oriented to person, oriented to place, speech is normal, memory intact Assessment and Plan Assessment: Impression: Right renal stone Plan Eswl right
[~2019-10-12 07:05] MED LIST: LACTATED RINGERS 1,000 ML IV SCH; LIDOCAINE 1% (10MG/ML) FOR IV START INTRADERMA PRN; Pre Op ABX Message 1 EACH MISC MISCELLANE ONE
[2019-10-12 08:00] VITALS: RESP 16; TEMP 97.3
--- NOTE | 2019-10-12 08:18 | XR ---
Abdomen HISTORY: Right-sided kidney stones Frontal view of the abdomen on 2 images correlated prior KUB 10/02/2019 Right-sided double-J stent is in place. There is a calcification overlying the midpole the right kidn ey measuring 6 to 7 mm in size. Possible phlebolith present in the left hemipelvis. No evident bowel obstruction or pneumoperitoneum. IMPRESSION: Right-sided nephrolithiasis. Double-J stent appears to overlie appropriate position.
--- NOTE | 2019-10-12 09:56 | P.OP ---
Date of Procedure: 10/12/19 Preoperative Diagnosis: right renal calculi Postoperative Diagnosis: same Procedure(s) Performed: Right ESWL Implants: none Anesthesia: other (sedation) Surgeon: Wes Granda Estimated Blood Loss (ml): 0 Pathology: none sent Condition: stable Disposition: PACU Indications for Procedure: 19 yo female who recently was at [facility] with an infected stone requiring antibiotics and a stent SHe has an 8 mm stone in the upj she comes for eswl this risks , complications and alternatives have been discussed. KUB in am of surgery demonstrated that stone has migrated to the kidney. She understands the importance of follow up and stent removal as she has missed previous appointments Operative Findings: large radioopaue stone in right kidney Description of Procedure: The patient was taken to the operating room and placed on the Dornier Compact Delta lithotripter in the supine position. The calculus was seen on biplanar fluoroscopy. Once the patient was properly positioned and sedated, lithotripsy was performed. The energy level was gradually increased per protocol, to an energy level of 4. A total of 2500 shocks were given at a rate of 80 shocks per minute. Fluoroscopy was utilized at a minimum to ensure proper positioning and determine the treatment status. There was excellent fragmentation of stone . The patient tolerated the procedure well was taken to the recovery room in stable condition. Instructions were given to strain the urine, and the patient will follow-up with Dr. Corral in one week.
[2019-10-12] MEDS ORDERED: HYDROcodone/APAP 5-325MG 1 EACH TAB PO ONE (10:38)
[2019-10-12 12:00] VITALS: BP 113/65; PULSE 85
== END 2019-10-12 11:56 | disposition home or self-care (01) ==
LOC: ORWHC2ENDO 07:05
PROVIDERS: ATTEND Urology
DX: N20.0 Calculus of kidney (principal); N83.209 Unspecified ovarian cyst, unspecified side; F32.9 Major depressive disorder, single episode, unspecified; F17.210 Nicotine dependence, cigarettes, uncomplicated; Z96.0 Presence of urogenital implants; Z80.8 Family history of malignant neoplasm of other organs or systems; Z87.440 Personal history of urinary (tract) infections
CPT/HCPCS: 50590; 74018; 81025

== ENCOUNTER → 2019-10-19 | Outpatient (CLI) | payer SELFPAY ==
--- NOTE | 2019-10-19 12:08 | XR ---
EXAMINATION TYPE: XR KUB DATE OF EXAM: 10/19/2019 COMPARISON: 10/02/2019 HISTORY: Renal calculus. N 20.0, N 20.1 TECHNIQUE: Single frontal view of the abdomen FINDINGS: Right-sided ureteral stent has its proximal portion overlying the expected location of the right kidney and distal portion overlying the central aspect of the expected urinary bladder. There a re 2 punctate calcific densities measuring 2 to 3 mm, one within each low hemipelvis. On the left the re is central lucency indicating a phlebolith. On the right this is positioned behind the ureteral st ents and not fully evaluated. This is not readily seen on the prior however bowel was located near th e location on the prior exam. Mild degree colonic fecal stasis. No dilated large or small bowel. Lung bases are not imaged. No acute osseous pathology seen. IMPRESSION: Right ureteral stent has been placed with a 2-3 mm calculus partially obscured by the dis kendra portion of the stent in the expected location of the urinary bladder that could represent a phleb olith or ureteral/urinary bladder calculus.
== END | disposition home or self-care (01) ==
LOC: RADXRMAIN 11:55
PROVIDERS: ATTEND Urology
DX: N20.0 Calculus of kidney (principal); N20.1 Calculus of ureter; Z96.0 Presence of urogenital implants
CPT/HCPCS: 74018